=== PATIENT | female | born 1975 | race African-American/Black ===

== ENCOUNTER 2017-02-08 11:01 | Emergency (ER) | payer MEDICAID, OTHER ==
[~2017-02-08] VITALS: Ht 167.6 cm; Wt 66.0 kg
[~2017-02-08 11:01] MED LIST: AMLO10TA4 PO; ATOR20TA PO; INSU3INS6 SUBCUT
[2017-02-08] MEDS ORDERED: SODIUM CHLORIDE 0.9% 1,000 ML IV ONE (11:54)
[2017-02-08] MEDS ORDERED: ACETAMINOPHEN 325MG TABLET PO ONE (12:00)
[2017-02-08 12:20] LABS: BASOPHILS % 0.6 % (0.0-2.0); EOSINOPHILS % 1.3 % (0.0-5.0); HEMATOCRIT. 47.1 % (36.0-48.0); HEMOGLOBIN. 15.7 g/dL (12.0-16.0); LYMPHOCYTES % 39.7 % (20.0-50.0); MEAN CORPUSCULAR HEMOGLOBIN 29.9 pg (28.0-32.0); MEAN CORPUSCULAR VOLUME 89.6 fL (81.0-99.0); MEAN PLATELET VOLUME 7.5 fl (7.4-10.4); MONOCYTES % 5.7 % (2.0-8.0); NEUTROPHILS % 52.7 % (40.0-76.0); PLATELET 367 x1000/uL (130-400); RED BLOOD CELL COUNT 5.26 mill/uL (4.2-5.4); RED CELL DISTRIBUTION WIDTH 13.9 % (11.6-14.6)
[2017-02-08 12:26] LABS: CLARITY URINE CLOUDY (CLEAR); COLOR URINE YELLOW (YELLOW); GLUCOSE URINE 3+ (NEGATIVE); KETONES URINE 4+ (NEGATIVE); LEUKOCYTE ESTERASE URINE NEGATIVE (NEGATIVE); NITRITE URINE NEGATIVE (NEGATIVE); OCCULT BLOOD URINE NEGATIVE (NEGATIVE); PROTEIN URINE TRACE (NEGATIVE); SPECIFIC GRAVITY URINE 1.038 (1.005-1.030); UROBILINOGEN URINE 0.2 E.U./dL (0.2-1.0)
[2017-02-08 12:27] LABS: HCG SCREEN NEGATIVE
[2017-02-08 12:40] LABS: CARBON DIOXIDE 17 mEq/L (21-32); CHLORIDE 104 mEq/L (98-107)
[2017-02-08 12:45] LABS: PHOSPHORUS 0.5 mg/dL (2.5-4.9)
[2017-02-08 13:34] VITALS: BP 138/84
[2017-02-08] MEDS ORDERED: POTASSIUM-SODIUM PHOSPHATE POWDER PACKET PO ONE (15:00)
== END 2017-02-08 15:44 | disposition home or self-care (01) ==
LOC: ER 11:19
DX: E11.65 Type 2 diabetes mellitus with hyperglycemia (principal); E83.39 Other disorders of phosphorus metabolism; I10 Essential (primary) hypertension; Z79.4 Long term (current) use of insulin
CPT/HCPCS: 36415; 71010; 80053; 81001; 82962; 83690; 83735; 84100; 84703; 85025; 96360; 96361; 99285; J7030; Z7610

== ENCOUNTER 2017-08-13 11:00 | Emergency (ER) | payer OTHER ==
[~2017-08-13] VITALS: Ht 165.1 cm; Wt 65.0 kg
[2017-08-13] MEDS ORDERED: ACETAMINOPHEN 325MG TABLET PO ONE (11:30)
[2017-08-13 11:58] LABS: BASOPHILS % 1.4 % (0.0-2.0); EOSINOPHILS % 2.4 % (0.0-5.0); HEMATOCRIT. 43.2 % (36.0-48.0); HEMOGLOBIN. 14.6 g/dL (12.0-16.0); LYMPHOCYTES % 41.4 % (20.0-50.0); MEAN CORPUSCULAR HEMOGLOBIN 30.2 pg (28.0-32.0); MEAN CORPUSCULAR VOLUME 89.5 fL (81.0-99.0); MEAN PLATELET VOLUME 7.5 fl (7.4-10.4); MONOCYTES % 6.4 % (2.0-8.0); NEUTROPHILS % 48.4 % (40.0-76.0); PLATELET 280 x1000/uL (130-400); RED BLOOD CELL COUNT 4.82 mill/uL (4.2-5.4)
[2017-08-13 12:06] LABS: CHLORIDE 105 mEq/L (98-107); INR 0.9; PROTHROMBIN TIME 9.8 sec (9.4-11.6)
[2017-08-13 12:32] LABS: HCG SCREEN NEGATIVE
[2017-08-13 13:05] LABS: CLARITY URINE CLEAR (CLEAR); COLOR URINE YELLOW (YELLOW); KETONES URINE 3+ (NEGATIVE); LEUKOCYTE ESTERASE URINE NEGATIVE (NEGATIVE); NITRITE URINE NEGATIVE (NEGATIVE); OCCULT BLOOD URINE NEGATIVE (NEGATIVE); PROTEIN URINE 1+ (NEGATIVE); SPECIFIC GRAVITY URINE 1.041 (1.005-1.030)
[2017-08-13] MEDS ORDERED: SODIUM CHLORIDE 0.9% 1,000 ML IV ONE (13:45)
[2017-08-13] MEDS ORDERED: ONDANSETRON HCL 4MG/2ML VIAL IV ONE (15:15)
[2017-08-13] MEDS ORDERED: SODIUM CHLORIDE 0.9% 1,000 ML IV NR (15:15)
[2017-08-13 16:25] VITALS: BP 121/81
== END 2017-08-13 16:35 | disposition home or self-care (01) ==
LOC: ER 11:41
DX: E11.21 Type 2 diabetes mellitus with diabetic nephropathy (principal); E11.65 Type 2 diabetes mellitus with hyperglycemia; D72.819 Decreased white blood cell count, unspecified; E87.2 Acidosis; R10.9 Unspecified abdominal pain; R19.7 Diarrhea, unspecified; R11.2 Nausea with vomiting, unspecified
CPT/HCPCS: 36415; 71045; 80053; 81003; 81025; 82962; 83690; 84703; 85025; 85610; 99285